=== PATIENT | female | born 1965 | race Caucasian/White ===

== ENCOUNTER 2021-10-06 05:54 | Observation (INO) ==
[2021-10-06] MEDS ORDERED: Vancomycin 1,750 MG/517.5 ML IV.SOLN IVPB ONE (06:00)
[2021-10-06] MEDS ORDERED: Clindamycin 900 MG/50 ML 900 MG/50 ML IV.SOLN IVPB ONE (06:09)
[2021-10-06] MEDS ORDERED: Ringers Solution, Lactated 1,000 ML IVC SCH (06:15)
[2021-10-06] MEDS ORDERED: Famotidine 20 MG/2 ML VIAL IVP ONE (07:00)
[2021-10-06] MEDS ORDERED: tiZANidine 4 MG TABLET PO ONE (07:00)
[2021-10-06] MEDS ORDERED: *HR* OxyCODONE Immed Rel 5 MG TABLET PO ONE (07:00)
[2021-10-06] MEDS ORDERED: Gabapentin 300 MG CAPSULE PO ONE (07:00)
[2021-10-06] MEDS ORDERED: Lidocaine -MPF 2% 5 ML VIAL ONE (07:02)
[2021-10-06] MEDS ORDERED: *HR* Succinylcholine 200 MG/10 ML VIAL IVP ONE (07:02)
[2021-10-06] MEDS ORDERED: *HR* FentaNYL (PF) 100 MCG/2 ML VIAL ONE (07:02)
[2021-10-06] MEDS ORDERED: *HR* Rocuronium Bromide 50 MG/5 ML VIAL ONE (07:02)
[2021-10-06] MEDS ORDERED: Lidocaine HCL 4 ML Topical Solution (Laryng-O-Jet Kit Sterile Pak) TP ONE (07:02)
[2021-10-06] MEDS ORDERED: Ondansetron 4 MG/2 ML VIAL ONE (07:02)
[2021-10-06] MEDS ORDERED: *HR* Propofol 200 MG/20 ML VIAL IVP ONE (07:03)
[2021-10-06] MEDS ORDERED: *HR* Midazolam HCl 2 MG/2 ML VIAL ONE (07:03)
[2021-10-06] MEDS ORDERED: *HR* Remifentanil 2 MG VIAL IVP ONE (07:45)
[2021-10-06] MEDS ORDERED: Vancomycin 1,000 MG VIAL ONE (07:49)
[2021-10-06] MEDS ORDERED: Polymyxin B Sulfate 500,000 UNIT, Sodium Chloride IRRigation 1,000 ML IR ONE (08:15)
[2021-10-06] MEDS ORDERED: EPHEDrine 50 MG/ML VIAL ONE (09:05)
[2021-10-06] MEDS ORDERED: *HR* Vasopressin 20 UNIT/ML VIAL ONE (09:29)
[2021-10-06] MEDS ORDERED: Ondansetron 4 MG/2 ML VIAL IVP PRN ×2 (10:27→13:53)
[2021-10-06] MEDS ORDERED: Sugammadex Sodium 200 MG/2 ML VIAL IV ONE (11:33)
[2021-10-06] MEDS: *HR* HYDROmorphone PF 0.5 MG/0.5 ML SYRINGE IVP PRN ×2 (11:59→12:17)
[2021-10-06] MEDS ORDERED: Naloxone 0.4 MG/ML INJ IVP PRN (13:53)
[2021-10-06] MEDS ORDERED: *HR* HYDROcodone/Acet 5/325 mg TABLET PO PRN (13:53)
[2021-10-06] MEDS ORDERED: 0.9 % Sodium Chloride 1,000 ML IVC SCH (15:15)
[2021-10-06] MEDS: Gabapentin 400 MG CAPSULE PO SCH ×2 (16:31→21:30)
[2021-10-06] MEDS: Clindamycin 900 MG/50 ML 900 MG/50 ML IV.SOLN IVPB SCH ×2 (16:31→23:06)
[2021-10-06] MEDS: Celecoxib 200 MG CAPSULE PO SCH (21:30)
[2021-10-06] MEDS: *HR* OxyCODONE Immed Rel 5 MG TABLET PO PRN (23:06)
[2021-10-07] MEDS: *HR* OxyCODONE Immed Rel 5 MG TABLET PO PRN ×3 (05:37→20:28)
[2021-10-07] MEDS: Gabapentin 400 MG CAPSULE PO SCH ×3 (08:56→20:28)
[2021-10-07] MEDS: Celecoxib 200 MG CAPSULE PO SCH ×2 (08:56→20:28)
[2021-10-08] MEDS: *HR* OxyCODONE Immed Rel 5 MG TABLET PO PRN ×2 (01:11→05:52)
[2021-10-08] MEDS: Ringers Solution, Lactated 1,000 ML IVC SCH (08:14)
[2021-10-08] MEDS: Gabapentin 400 MG CAPSULE PO SCH (09:30)
[2021-10-08] MEDS: Celecoxib 200 MG CAPSULE PO SCH (09:30)
[2021-10-08 10:33] VITALS: BP 114/66; PULSE 94; TEMP 98.1; O2SAT 98
== END 2021-10-08 13:15 | disposition home or self-care (01) ==
LOC: SDCAOSI 05:54 → 4WAOSI 05:54
PROVIDERS: ADMIT Orthopaedic Surgery Orthopaedic Surgery of the Spine; ATTEND Orthopaedic Surgery Orthopaedic Surgery of the Spine